=== PATIENT | female | born 1990 | race Caucasian/White ===

== ENCOUNTER 2018-07-05 09:51 | Outpatient (CLI) | payer BC ==
--- NOTE | 2018-07-05 10:33 | RAD ---
LEFT FOOT THREE VIEWS: History: 28-year-old female with history of left foot pain for one year with concern for stress fracture. FINDINGS: No fracture, dislocation, or other significant acute osseous abnormality. IMPRESSION: Unremarkable left foot. No evidence for plain film radiographic evidence for stress fracture. If that remains a strong clinical concern, follow up MRI study might give additional information. POS: [facility]
== END 2018-07-05 09:52 | disposition home or self-care (01) ==
LOC: SCSRAD 09:51
PROVIDERS: ATTEND Family Medicine
DX: M79.672 Pain in left foot (principal)